=== PATIENT | male | born 1985 | race Two or more races ===

== ENCOUNTER 2022-12-11 20:21 | Emergency (ER) | payer OTHER ==
[2022-12-11 20:55] VITALS: BMI 42.3
[2022-12-11] MEDS ORDERED: ACETAMINOPHEN 1000 MG/100 ML BAG IVPB ONE (21:04)
[2022-12-11 22:05] VITALS: BP 154/74; PULSE 79; RESP 12; TEMP 98.2
[2022-12-11 22:15] LABS: BASO % 0.3 % (0-2.0); EOS % 1.9 % (0-4.5); HEMATOCRIT 42.6 % (35.4-49); HEMOGLOBIN 14.7 GM/dL (11.7-16.9); LYMPH % 28.5 % (8-40); MCH 28.6 pg (25.7-33.7); MCHC 34.6 g/dl (32.0-35.9); MEAN CELL VOLUME 82.7 fl (80-96); MEAN PLT VOLUME 8.7 fl (7.5-11.1); NEUT % 59.3 % (42.8-82.8); PLATELET COUNT 289 10^3/uL (134-434); RBC 5.15 M/mm3 (4.00-5.60); RDW 13.2 % (11.9-15.9); WHITE BLOOD COUNT 7.4 K/mm3 (4.0-10.0)
[2022-12-11 22:22] LABS: INR 1.15 (0.83-1.09); PROTHROMBIN TIME (PATIENT) 13.3 SEC (9.7-13.0)
[2022-12-11 22:25] LABS: ACTIVATED PTT 31.6 SECONDS (25.2-36.5)
[2022-12-11 22:35] LABS: POTASSIUM 3.9 mmol/L (3.5-5.1)
[2022-12-11 22:37] LABS: CALCIUM 9.5 mg/dL (8.5-10.1)
[2022-12-11 22:38] LABS: ALBUMIN 3.9 g/dl (3.4-5.0); BLOOD UREA NITROGEN 12.4 mg/dL (7-18); MAGNESIUM 2.3 mg/dL (1.8-2.4)
[2022-12-11 22:42] LABS: BILIRUBIN,TOTAL 0.3 mg/dL (0.2-1)
[2022-12-12] MEDS ORDERED: ACETAMINOPHEN 325 MG TABLET (FP) PO ONE (00:24)
== END 2022-12-12 00:15 | disposition home or self-care (01) ==
LOC: JER 20:21
DX: R07.89 Other chest pain (principal); R00.2 Palpitations; R42 Dizziness and giddiness; Z20.822 Contact with and (suspected) exposure to COVID-19
CPT/HCPCS: 0241U-QW; 36415; 71045-TC-FY; 80053; 83735; 84439; 84443; 84484; 85025; 85379; 85610; 85730; 93005; 93010; 99285-25